=== PATIENT | male | born 1940 | race Hispanic/Latino ===

== ENCOUNTER 2018-12-08 14:20 | Emergency (ER) | payer OTHER ==
[2018-12-08 15:45] LABS: Absolute Lymphocytes (CBC) 1.1 K/uL (0.7-4.9); Basophils % 0.5 % (0-1.3); Eosinophils % 2.9 % (0-4.4); Hematocrit 46.7 % (39.6-49.0); Lymphocytes % 14.1 % (15.3-44.8); MPV 8.5 fL (7.6-11.3); Monocytes % 12.8 % (3.3-12.3); RBC Red Blood Cell Count 5.09 M/uL (4.33-5.43)
[2018-12-08 16:01] LABS: Potassium 3.5 mmol/L (3.5-5.1)
--- NOTE | 2018-12-08 16:21 | RAD REPORT ---
EXAM DESCRIPTION: RAD - Knee Left 3 View - 12/08/2018 3:42 pm CLINICAL HISTORY: Nontraumatic left knee pain COMPARISON: None. FINDINGS: No fracture, dislocation or periosteal reaction.Large joint effusion is present. Medial co mpartment narrowing is present. Medial and lateral degenerative meniscus calcifications are present. Medial and lateral compartment marginal spurs are present along with this moderate spurring of the pa tella articular margins. Focal sclerotic focus distal shaft of the femur is believed to be an inciden boyd benign fibrous cortical defect. IMPRESSION: Prominent degenerative changes of the knee as detailed along with large joint effusion. No acute bone findings seen. Clinical concerns for internal derangement or occult bony injury could be further assessed with MR im aging.
--- NOTE | 2018-12-08 16:21 | RAD REPORT ---
EXAM DESCRIPTION: US - Extremity Venous Uni Ltd - 12/08/2018 3:57 pm CLINICAL HISTORY: Left leg pain and swelling COMPARISON: None. TECHNIQUE: Real-time sonographic evaluation of the left lower extremity deep venous system was perfo rmed. FINDINGS: Normal compressibility, flow augmentation, phasic flow and spontaneous flow are identified in the left lower extremity common femoral, superficial femoral, popliteal and posterior tibial vein s. No intraluminal filling defects seen. IMPRESSION: No DVT in the left lower extremity.
--- NOTE | 2018-12-08 16:37 | EDPHYS ---
Physician Documentation [facility] Name: Felipe Velasquez Age: 78 yrs Sex: Male : 1940 Arrival Date: 12/08/2018 Time: 14:22 Bed 26 Private MD: ED Physician Dayton Hennessy HPI: 12/08 15:10 This 78 yrs old Male presents to ER via Ambulatory with complaints of Trouble kb Walking, Leg Pain. 15:10 The patient presents with pain, that is acute, swelling, tenderness. The complaints kb affect the left knee. Context: the patient can fully bear weight, the patient is able to ambulate. Onset: The symptoms/episode began/occurred 4 day(s) ago. Modifying factors: The symptoms are alleviated by nothing. the symptoms are aggravated by movement, weight bearing, bending knee. Associated signs and symptoms: Pertinent positives: calf tenderness, swelling, warmth, Pertinent negatives fever, nausea, numbness, rash, tingling, vomiting, weakness. Treatment prior to arrival includes: no previous treatment. Severity of symptoms: At their worst the symptoms were moderate, in the emergency department the symptoms are unchanged. The patient has experienced similar episodes in the past, several times. The patient has not recently seen a physician. Pt reports knee swelling for 4 days and pain for 2 days. Denies injury. Reports he has had this before in the right knee a few times and it was caused by arthritis. States the pain radiates down left calf. Historical: - Allergies: 14:27 No Known Allergies; hj - PMHx: 14:27 Arthritis; Hyperlipidemia; Thyroid problem; Hypertension; hj - PSHx: 14:27 prostate; ear; hj - Immunization history:: Flu vaccine status is unknown. - Social history:: Smoking status: unknown. - Ebola Screening: : No symptoms or risks identified at this time. ROS: 15:08 Constitutional: Negative for fever, chills, and weight loss, ENT: Negative for injury, kb pain, and discharge, Neck: Negative for injury, pain, and swelling, Cardiovascular: Negative for chest pain, palpitations, and edema, Respiratory: Negative for shortness of breath, cough, wheezing, and pleuritic chest pain, Abdomen/GI: Negative for abdominal pain, nausea, vomiting, diarrhea, and constipation, Skin: Negative for injury, rash, and discoloration, Neuro: Negative for headache, weakness, numbness, tingling, and seizure. 15:08 MS/extremity: Positive for pain, swelling, tenderness, warmth, of the left knee. Exam: 15:08 Constitutional: This is a well developed, well nourished patient who is awake, alert, kb and in no acute distress. Head/Face: Normocephalic, atraumatic. ENT: Nares patent. No nasal discharge, no septal abnormalities noted. Tympanic membranes are normal and external auditory canals are clear. Oropharynx with no redness, swelling, or masses, exudates, or evidence of obstruction, uvula midline. Mucous membranes moist. Neck: Trachea midline, no thyromegaly or masses palpated, and no cervical lymphadenopathy. Supple, full range of motion without nuchal rigidity, or vertebral point tenderness. No Meningismus. Chest/axilla: Normal chest wall appearance and motion. Nontender with no deformity. No lesions are appreciated. Cardiovascular: Regular rate and rhythm with a normal S1 and S2. No gallops, murmurs, or rubs. Normal PMI, no JVD. No pulse deficits. Respiratory: Lungs have equal breath sounds bilaterally, clear to auscultation and percussion. No rales, rhonchi or wheezes noted. No increased work of breathing, no retractions or nasal flaring. Abdomen/GI: Soft, non-tender, with normal bowel sounds. No distension or tympany. No guarding or rebound. No evidence of tenderness throughout. Skin: Warm, dry with normal turgor. Normal color with no rashes, no lesions, and no evidence of cellulitis. Neuro: Awake and alert, GCS 15, oriented to person, place, time, and situation. Cranial nerves II-XII grossly intact. Motor strength 5/5 in all extremities. Sensory grossly intact. Cerebellar exam normal. Normal gait. 15:08 Musculoskeletal/extremity: Extremities: grossly normal except: noted in the left knee: pain, swelling, tenderness, ROM: limited active range of motion due to pain, Circulation is intact in all extremities. Sensation intact. Weight bearing: able to fully bear weight. Vital Signs: 14:27 BP 97 / 82; Pulse 82; Resp 18; Temp 98.2(O); Pulse Ox 98% on R/A; Weight 76.66 kg; hj Height 5 ft. 8 in. (172.72 cm); Pain 10/10; 14:27 Body Mass Index 25.70 (76.66 kg, 172.72 cm) hj MDM: 14:42 Patient medically screened. rn 14:54 Data reviewed: vital signs, nurses notes. Data interpreted: Pulse oximetry: on room air kb is 98 %. Interpretation: normal. 16:13 ED course: Spoke at length with patient and family member, patient states this has rn happened about 5 other times, both knees has been evaluated multiple times, told not gout, that they "dont even get xrays anymore", told is just arthritis. Had right knee attack 18 days ago. States goes away with anti-inflammatories and pain meds. Attempted to consent patient for aspiration of knee joint, he declines, states he knows it is just arthritis, and here for shots. Understands risks of leaving without aspiration of knee, and states will return if anything changes given this is identical to other 5 episodes. . 16:25 Counseling: I had a detailed discussion with the patient and/or guardian regarding: the kb historical points, exam findings, and any diagnostic results supporting the discharge/admit diagnosis, lab results, radiology results, the need for outpatient follow up, a orthopedic surgeon, to return to the emergency department if symptoms worsen or persist or if there are any questions or concerns that arise at home. 12/08 15:06 Order name: CBC with Diff; Complete Time: 16:45 kb 12/08 15:06 Order name: Basic Metabolic Panel; Complete Time: 16:07 kb 12/08 15:06 Order name: CRP; Complete Time: 16:07 kb 12/08 15:06 Order name: Procalcitonin; Complete Time: 16:54 kb 12/08 15:06 Order name: Lactate; Complete Time: 16:07 kb 12/08 15:06 Order name: Blood Culture Adult (2) kb 12/08 15:06 Order name: Knee Left 3 View XRAY; Complete Time: 16:24 kb 12/08 15:06 Order name: US Extremity Venous Unilateral Ltd; Complete Time: 16:24 kb 12/08 15:06 Order name: Sed Rate; Complete Time: 16:45 kb 12/08 15:06 Order name: IV Start; Complete Time: 15:29 kb Administered Medications: 16:34 Drug: [place] 10 mg-325 mg 1 tabs Route: PO; mg2 16:35 Follow up: Response: No adverse reaction; Medication administered at discharge. mg2 16:34 Drug: TORadol 30 mg Route: IVP; Site: right antecubital; mg2 16:34 Follow up: Response: No adverse reaction; Medication administered at discharge. mg2 Disposition: 12/09 07:02 Co-signature as Attending Physician, Dayton Hennessy MD I agree with the assessment and rn plan of care. Disposition: 12/08/18 16:26 Discharged to Home. Impression: Pain in left knee. - Condition is Stable. - Discharge Instructions: Knee Effusion, [id number], Knee Pain, [id number]. - Prescriptions for Diclofenac Sodium 75 mg Oral Tablet, Delayed Release (E.C.) - take 1 tablet by ORAL route 2 times per day As needed; 30 tablet. - Medication Reconciliation Form, Thank You Letter, Antibiotic Education, Prescription Opioid Use form. - Follow up: Emergency Department; When: As needed; Reason: Worsening of condition. Follow up: Private Physician; When: 2 - 3 days; Reason: Recheck today's complaints, Continuance of care, Re-evaluation by your physician. Signatures: Dispatcher [employer] EDMS Traci Mathis, PACKAGING MANAGER-C PACKAGING MANAGER-Ckb Dayton Hennessy MD MD rn Joaquin, Henry, RN RN hj Gardose, Michele, RN RN mg2 Corrections: (The following items were deleted from the chart) 12/08 17:03 15:25 Body Fluid Culture+BA.LAB.BRZ ordered. EDNH EDMS 17:03 15:25 FLUID CRYSTALS+U.LAB.BRZ ordered. EDMS EDMS 17:03 15:25 FLUID CELL COUNT,BODY+H.LAB.BRZ ordered. EDNH EDMS 17:09 16:26 12/08/2018 16:26 Discharged to Home. Impression: Pain in left knee. Condition is mg2 Stable. Forms are Medication Reconciliation Form, Thank You Letter, Antibiotic Education, Prescription Opioid Use. Follow up: Emergency Department; When: As needed; Reason: Worsening of condition. Follow up: Private Physician; When: 2 - 3 days; Reason: Recheck today's complaints, Continuance of care, Re-evaluation by your physician. kb
--- NOTE | 2018-12-08 16:37 | ER ---
Nurse's Notes [facility] Name: Felipe Velasquez Age: 78 yrs Sex: Male : 1940 Arrival Date: 12/08/2018 Time: 14:22 Bed 26 Private MD: Diagnosis: Pain in left knee Presentation: 12/08 14:23 Presenting complaint: Patient states: site interpreter: i have arthritis and my L hj knee is swollen for 2 days; denies trauma to the area; reports swelling; denies numbness or tingling;. Transition of care: patient was not received from another setting of care. Onset of symptoms. Risk Assessment: Do you want to hurt yourself or someone else? Patient reports no desire to harm self or others. Initial Sepsis Screen: Does the patient meet any 2 criteria? No. Patient's initial sepsis screen is negative. Does the patient have a suspected source of infection? No. Patient's initial sepsis screen is negative. Care prior to arrival: None. 14:23 Method Of Arrival: Ambulatory 14:23 Acuity: CEE 3 hj Historical: - Allergies: 14:27 No Known Allergies; hj - PMHx: 14:27 Arthritis; Hyperlipidemia; Thyroid problem; Hypertension; hj - PSHx: 14:27 prostate; ear; hj - Immunization history:: Flu vaccine status is unknown. - Social history:: Smoking status: unknown. - Ebola Screening: : No symptoms or risks identified at this time. Screenin:30 Abuse screen: Denies threats or abuse. Denies injuries from another. Nutritional mg2 screening: No deficits noted. Tuberculosis screening: No symptoms or risk factors identified. Fall Risk IV access (20 points). Ambulatory Aid- Crutches/Cane/Walker (15 pts). Gait- Weak (10 pts.). Assessment: 15:31 General: Appears in no apparent distress. uncomfortable, Behavior is calm, cooperative. mg2 Pain: Complains of pain in left knee Pain radiates to left leg Pain currently is 5 out of 10 on a pain scale. Quality of pain is described as aching. Neuro: Level of Consciousness is awake, alert, obeys commands, Oriented to person, place, time, situation. Cardiovascular: Capillary refill < 3 seconds Patient's skin is warm and dry. Respiratory: Airway is patent Respiratory effort is even, unlabored, Respiratory pattern is regular, symmetrical. GI: No signs and/or symptoms were reported involving the gastrointestinal system. : No signs and/or symptoms were reported regarding the genitourinary system. EENT: No signs and/or symptoms were reported regarding the EENT system. Derm: Skin is intact, is healthy with good turgor, Skin is pink, warm \T\ dry. normal. Musculoskeletal: Swelling present in left knee Reports pain in left knee. 17:04 Reassessment: patient refused needle aspiratin on the left knee. provider aware. mg2 Patient states feeling better. Vital Signs: 14:27 BP 97 / 82; Pulse 82; Resp 18; Temp 98.2(O); Pulse Ox 98% on R/A; Weight 76.66 kg; hj Height 5 ft. 8 in. (172.72 cm); Pain 10/10; 14:27 Body Mass Index 25.70 (76.66 kg, 172.72 cm) ED Course: 14:22 Patient arrived in ED. hj 14:25 Triage completed. hj 14:27 Arm band placed on right wrist. hj 14:34 Perla Mullen, RN is Primary Nurse. aj1 14:42 Datyon Hennessy MD is Attending Physician. rn 14:53 Traci Mathis F[facility]-C [facility]. kb 14:53 Dayton Hennessy MD is Attending Physician. kb 15:29 Inserted saline lock: 20 gauge in right antecubital area, using aseptic technique. mg2 Blood collected. 15:33 Patient has correct armband on for positive identification. Pulse ox on. NIBP on. Door mg2 closed. 15:40 X-ray completed. Portable x-ray completed in exam room. Patient tolerated procedure mh1 well. 15:47 Knee Left 3 View XRAY In Process Unspecified. EDMS 15:54 Ultrasound completed. Patient tolerated well. Note: done portable /bedside. lc3 15:57 US Extremity Venous Unilateral Ltd In Process Unspecified. EDMS 17:04 No provider procedures requiring assistance completed. IV discontinued, intact, mg2 bleeding controlled, No redness/swelling at site. Pressure dressing applied. Administered Medications: 16:34 Drug: [place] 10 mg-325 mg 1 tabs Route: PO; mg2 16:35 Follow up: Response: No adverse reaction; Medication administered at discharge. mg2 16:34 Drug: TORadol 30 mg Route: IVP; Site: right antecubital; mg2 16:34 Follow up: Response: No adverse reaction; Medication administered at discharge. mg2 Outcome: 16:26 Discharge ordered by . annemarie 17:09 Discharged to home via wheelchair, with family. mg2 17:09 Condition: improved 17:09 Discharge instructions given to patient, family, Instructed on discharge instructions, follow up and referral plans. medication usage, Demonstrated understanding of instructions, follow-up care, medications, Prescriptions given X 1. 17:09 Patient left the ED. mg2 Signatures: Dispatcher [employer] EDMS Traci Mathis, ASSEMBLY OPERATOR-C ASSEMBLY OPERATOR-Ckb Perla Mullen RN RN aj1 Simi Mendoza 1 Dayton Hennessy MD MD rn Joaquin, Henry, RN RN hj Cunningham, Laulita lc3 Gardose, Michele, RN RN mg2 Corrections: (The following items were deleted from the chart) 14:29 14:27 76.66 kg; Height 5 ft. 8 in.; BMI: 25.7; Pain 10/10; hj hj 14:29 14:27 Pulse 82bpm; Resp 18bpm; Pulse Ox 98% RA; Temp 98.2F Oral; 76.66 kg; Height 5 ft. hj 8 in.; BMI: 25.7; Pain 10/10; hj 15:21 14:23 Acuity: CEE 4 hj hj 17:08 17:04 Reassessment: Patient states feeling better. mg2 mg2
[2018-12-08] MEDS ORDERED: KETOROLAC 30 MG/ML INJ ONE (16:45)
[2018-12-08] MEDS ORDERED: HYDROCODONE/APAP 10/325 TAB ONE (16:45)
== END 2018-12-08 17:09 | disposition home or self-care (01) ==
LOC: ER 14:20
DX: M25.562 Pain in left knee (principal); I10 Essential (primary) hypertension
CPT/HCPCS: 36415; 80048; 83605; 84145; 85025; 85652; 86140; 87040; 93971; 96374; 99284